=== PATIENT | male | born 1975 ===

== ENCOUNTER 2019-08-27 08:00 | Emergency (ER) | payer SELFPAY ==
[2019-08-27 08:04] VITALS: BP 153/110; PULSE 63; RESP 20; TEMP 36.6; O2SAT 100; BMI 26.2
--- NOTE | 2019-08-27 08:11 | ED_ITS ---
Entered by Rafaela Cabrera, acting as scribe for Zhang Schwartz DO HPI - Back Pain/Injury General: Chief Complaint: Back Pain/Injury Stated Complaint: neck/shoulder/back pain Time Seen by Provider: 08/27/19 08:14 History of Present Illness: HPI Narrative: 44 yo male presents with back, neck and shoulder pain. Pt states that he has a kink in his neck that he feels like is caused back his upper back pain. 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 No previous history of back surgery. No falls or recent accidents. MD elicited complaint: back pain Onset (ago): day(s) (2) Severity: moderate Associated symptoms: Deny abdominal pain, chills, difficulty walking, dysuria, fatigue, fever(s), hematuria, nausea, syncope, urinary urgency or vomiting Review of Systems Const: Denies: fever, chills, body aches, fatigue, malaise or night sweats Eyes: Denies: change in vision or blurry vision ENMT: Denies: throat pain, oral sores/lesions, dental pain, nasal discharge or nasal congestion Card: Denies: chest pain, palpitations, irregular heart rhythm, edema, syncope, shortness of breath on exertion, shortness of breath when lying down or leg pain with exertion Resp: Denies: shortness of breath, productive cough, non-productive cough or wheezing GI: Denies: abdominal pain, nausea, vomiting, vomiting blood, coffee grounds in vomit, difficulty swallowing, heartburn/indigestion, diarrhea, constipation, cramping, blood in stool or black tarry stool : Denies: flank pain, difficulty urinating, painful urination, urinary frequency, urinary urgency, urinary incontinence or blood in urine Musc: Reports: neck pain and extremity pain; Denies: extremity swelling, joint pain or joint swelling Skin/Breast: Denies: rash, itching or redness Neuro: Denies: headache, numbness in extremities, weakness in extremities, changes in sensation, lack of coordination, difficulty walking, frequent falls, dizziness, vertigo or confusion Psych: Denies: anxiety, depression, loss of interest, visual hallucinations, auditory hallucinations, suicidal ideation or homicidal ideation Endo: Denies: excessive urination, excessive thirst, tired all the time or cold intolerance Noel/Lymph: Denies: easy bruising, easy bleeding, petechiae, enlarged lymph nodes or tender lymph nodes PFSH ED PFSH: Statuses (acute, chronic, etc) shown below reflect problem list status as previously entered and may not be historically accurate Surgical History History of lung surgery (Acute) Social History Smoking and tobacco status: former smoker Physical Exam Const: COMMON NORMALS: average body habitus, oriented x3 and alert GENERAL APPEARANCE: cooperative, comfortable, well kempt and well developed NUTRITIONAL APPEARANCE: not obese ORIENTATION/CONSCIOUSNESS: Yes awake, Yes oriented to person and Yes oriented to place HENMT: COMMON NORMALS: normocephalic, head/scalp atraumatic, EAC's normal, TM's normal bilaterally, external nose normal, moist oral mucous membranes and oropharynx normal HEAD & SCALP: normocephalic and atraumatic NOSE: external nose normal EXTERNAL AUDITORY CANAL: EAC's normal TYMPANIC MEMBRANE: TM's normal bilaterally MOUTH: oral and palatal mucosa normal, lip normal and tongue normal THROAT: posterior oropharynx normal and tonsils normal Eye: COMMON NORMALS: PERRL, EOMs intact bilaterally, conjunctivae normal and no scleral icterus CONJUNCTIVA: Yes conjunctivae normal PUPIL: Yes PERRL Neck/C-Spine: COMMON NORMALS: full ROM, no lymphadenopathy, supple, no meningeal signs and thyroid normal THYROID: thyroid normal and asymmetrical Lymph: LYMPHATIC: no lymphadenopathy noted Resp: COMMON NORMALS: normal respiratory effort, no retractions, no use of accessory muscles and clear to auscultation bilaterally AUSCULTATION: clear to auscultation bilaterally Cardio: COMMON NORMALS: regular rate and regular rhythm RATE: regular rate RHYTHM: regular rhythm HEART SOUNDS: no murmurs GI: COMMON NORMALS: normal to inspection, nondistended, normoactive bowel sounds, soft to palpation and no hepatosplenomegaly PALPATION: Yes soft and Yes no hepatosplenomegaly : COMMON NORMALS: Yes no CVA tenderness BLADDER/KIDNEY EXAM: Yes no CVA tenderness Back/Pelvis: COMMON NORMALS: no CVA tenderness LUMBAR SPINE/LOWER BACK: Yes normal to inspection Extremity: COMMON NORMALS: no clubbing, cyanosis or edema, no calf tenderness and no pedal edema Neuro: COMMON NORMALS: oriented x3 SENSORIUM/ORIENTATION: Yes alert, Yes oriented to person and Yes oriented to place MENINGEAL SIGNS: Yes no meningeal signs Psych: APPEARANCE: Yes well kempt Skin: COMMON NORMALS: no rashes or lesions noted and skin turgor normal GENERAL SKIN EXAM: no rashes or lesions noted and turgor normal Course Vital Signs: Vital signs: Vital Signs Temperature 97.8 F 08/27/19 08:04 Pulse Rate 63 08/27/19 08:04 Respiratory Rate 20 H 08/27/19 08:04 Blood Pressure 153/110 08/27/19 08:04 Pulse Oximetry 100 08/27/19 08:04 Discharge Plan Discharge Patient Disposition: Home, Self-Care Clinical Impression: Strain of lumbar region Qualifiers: Encounter type: initial encounter Qualified Code(s): S39.012A - Strain of muscle, fascia and tendon of lower back, initial encounter Cervical muscle strain Qualifiers: Encounter type: initial encounter Qualified Code(s): S16.1XXA - Strain of muscle, fascia and tendon at neck level, initial encounter Condition: Stable Prescriptions: New cyclobenzaprine 5 mg tablet 10 mg PO Q8H Qty: 30 RF: 0 diclofenac sodium 75 mg tablet,delayed release (DR/EC) 75 mg PO Q12H PRN (Reason: pain) Qty: 30 RF: 0 Discharge Orders: Discharge Order (Routine); Ordered 08/27/19 Ordered By: Zhang Schwartz Discharge Diet: Usual diet Discharge Activity: Increase activity as tolerated Activity Restrictions/Additional Instructions: Case management will call to get set up with a primary care doctor. Discharge Date/Time: 08/27/19 08:42 Coding Level of Care Code ED Regulatory Attorney for Chg Fwd Exam Problem Focused The documentation recorded by the Rick burgos Kialy, accurately reflects the service I personally performed and the decisions made by , Zhang Schwartz, Aug 27, 2019 08:00
[2019-08-27] MEDS: ketorolac 60 mg/2 mL INJ IM (08:23)
[2019-08-27] MEDS: orphenadrine 30 mg/mL Inj 2 mL 60 MG IM (08:24)
--- NOTE | 2019-08-27 08:35 | PC.NURSE ---
Left arm: Limited ROM due to pain. Mid-back: No deformity noted. [place] with ROM. Left neck: Pain with ROM
--- NOTE | 2019-08-27 14:40 | DCPLANNER ---
manager recovery had message to speak with patient about getting established with a primary care physician. manager recovery called patient, unable to speak with patient at this time, did speak with patients spouse, left a message for patient to return showcase trimmer phone call.
== END 2019-08-27 08:42 | disposition home or self-care (01) ==
PROVIDERS: Emergency Provider Family Medicine
DX: S39.012A Strain of muscle, fascia and tendon of lower back, initial encounter (principal); S16.1XXA Strain of muscle, fascia and tendon at neck level, initial encounter; X50.0XXA Overexertion from strenuous movement or load, initial encounter; Z87.891 Personal history of nicotine dependence
CPT/HCPCS: 96372; 99281; J1885; J2360

== ENCOUNTER 2020-04-17 06:32 | Emergency (ER) | payer SELFPAY ==
[2020-04-17 06:42] VITALS: BP 120/77; PULSE 69; RESP 16; TEMP 36.9; O2SAT 98; BMI 25.0
[2020-04-17 07:07] VITALS: PULSE 67; RESP 18; O2SAT 97
--- NOTE | 2020-04-17 07:20 | XR_ITS ---
WS: [id number] Right foot, 3 views, 04/16/2020 Clinical Data: foot pain Comparison: Right foot, 06/18/2012. Findings: No fractures or dislocations are seen. No bone destruction or erosion is noted. The joint spaces and soft tissues are normal. XR/XR foot RT min 3V* [id number] Impression: Negative right foot.
--- NOTE | 2020-04-17 07:21 | CT_ITS ---
WS: [id number] CT LUMBAR SPINE TECHNIQUE: Noncontrast CT of the lumbar spine with coronal and sagittal reformatted images. CLINICAL INFORMATION: radicular leg pain COMPARISON: None. DLP: 1855.[address] scans at [facility] use at least one of these dose optimization techniques: automat ed exposure control; mA and/or kV adjustment per patient size (includes targeted exams where dose is matched to clinical indication); or iterative reconstruction. FINDINGS: Mild lumbar curve. No acute compression. No high-grade central canal stenosis. L1-L2: Normal. L2-L3: Normal. L3-L4: Mild annular bulging. Osteophytic ridging. Spinal canal and foramen are patent. Mild facet art hropathy. L4-L5: Mild annular bulging with narrowing of the subarticular recess bilaterally left greater than r ight. Mild left foraminal narrowing with slight contact of the exiting left L4 nerve root. Right fora men is patent. Mild facet arthropathy with ligamentum flavum hypertrophy. L5-S1: Central and right pericentral disc protrusion contacts the traversing right S1 nerve root. Rec ommend correlation for right S1 nerve root symptoms. Mild right foraminal narrowing. Mild facet arthr opathy. Visualized pelvic bony structures: Normal. Paravertebral soft tissues: Normal. CT/CT lumbar spine wo con* [id number] IMPRESSION: 1. Small right pericentral protrusion L5-S1 slightly impinges the traversing r ight S1 nerve root. Recommend correlation for right S1 nerve root symptoms. 2. Mild right L5-S1 foraminal narrowing. 3. Annular bulging L4-5 with narrowing of the left greater than right subartic ular recess. Mild left L4-5 foraminal narrowing. Notified Zhang Schwartz DO at 04/17/2020 8:16 AM.
--- NOTE | 2020-04-17 07:22 | W.ED.EXTPRO ---
HPI - Extremity Problem General: Chief complaint: Extremity Problem,Nontraumatic Stated complaint: R FOOT INJURY Time Seen by Provider: 04/17/20 06:38 History of Present Illness: HPI Narrative: 45-year-old male presents emergency room with complaint of lateral right foot pain over the fourth and fifth toes. He cannot recall any particular trauma or injuries not previously had pain in his foot like that before he does note that when he dries his knee and flexes at the hip it seems to be a little bit better he is not previously had any chronic back pain issues or surgery. He denies urinary retention denies fecal incontinence. MD Complaint: extremity pain Onset (ago): day(s) Pain Consistency: constant Location: right and toe (Fourth and fifth) Quality: burning and sharp Radiation: distal Relieving factors: other (Flexing at the hip) Exacerbating factors: weight bearing and walking Associated symptoms: Reports arthralgias; Deny chest pain, fever(s), myalgias, rash or short of breath Review of Systems Const: Denies: fever(s) ENMT: Denies: throat pain, ear or mastoid pain, nasal discharge or nasal congestion Card: Denies: chest pain Resp: Denies: dyspnea, productive cough or non-productive cough GI: Denies: abdominal pain, nausea, vomiting, hematemesis, coffee ground emesis, diarrhea, constipation, bloating, hematochezia or melena : Denies: flank pain, dysuria, urinary frequency or urinary urgency Skin/Breast: Denies: rash PFSH ED PFSH: Medical History (Updated 04/17/20 @ 08:55 by Zhang Schwartz DO) Multiple rib fractures No significant past medical history Surgical History History of lung surgery Social History (Updated 04/17/20 @ 07:25 by Zhang Schwartz DO) Smoking and tobacco status: former smoker Alcohol intake: former Physical Exam Const: COMMON NORMALS: no acute distress GENERAL APPEARANCE: cooperative and comfortable ORIENTATION/CONSCIOUSNESS: Yes awake, Yes oriented to person, Yes oriented to place and Yes oriented to time HENMT: COMMON NORMALS: normocephalic, atraumatic and hearing grossly normal bilaterally HEAD & SCALP: normocephalic and atraumatic Eye: COMMON NORMALS: Equal, round and reactive pupils present, EOMs intact bilaterally, conjunctivae normal and no scleral icterus CONJUNCTIVA: Yes conjunctivae normal PUPIL: Yes Equal, round and reactive pupils present Neck/C-Spine: COMMON NORMALS: full ROM, no lymphadenopathy, supple and no JVD Lymph: LYMPHATIC: no lymphadenopathy noted and no lymphedema noted Resp: COMMON NORMALS: normal respiratory effort, No retractions, No use of accessory muscles and clear to auscultation bilaterally AUSCULTATION: clear to auscultation bilaterally Cardio: COMMON NORMALS: no JVD, regular rate, regular rhythm and No murmurs present (Cardio) RATE: regular rate RHYTHM: regular rhythm GI: COMMON NORMALS: Soft to palpation and No hepatosplenomegaly present AUSCULTATION: Yes normoactive bowel sounds PALPATION: Yes Soft to palpation, No Tenderness to palpation present (GI), No Guarding due to palpation present (GI) and Yes No hepatosplenomegaly present Extremity: COMMON NORMALS: normal to inspection, capillary refill normal, no clubbing, cyanosis or edema, no calf tenderness and no pedal edema Neuro: SENSORIUM/ORIENTATION: Yes oriented to person, Yes oriented to place and Yes oriented to time OTHER: Straight leg raising negative bilaterally dorsi and plantarflex strength 5 of 5 diminished reflexes at the patellar tendon bilaterally hypersensitivity over the lateral aspect of the right foot. Skin: COMMON NORMALS: no rashes or lesions noted GENERAL SKIN EXAM: no rashes or lesions noted Course Vital Signs: Vital signs: Vital Signs Temperature 98.4 F 04/17/20 06:42 Pulse Rate 57 L 04/17/20 09:00 Respiratory Rate 18 04/17/20 09:00 Blood Pressure 116/78 04/17/20 09:00 Pulse Oximetry 100 04/17/20 09:00 MDM - Extremity (Nontraumatic) MDM Narrative: Medical decision making narrative: Slights sensation discrepancy of motor function 5/5 will get discharged home with anti-inflammatories muscle relaxers and Medrol Dosepak follow-up with primary care provider chaparror within the next week to reevaluate return if has worsening problems Discharge Plan Discharge Patient Disposition: Home Clinical Impression: Right lumbar radiculopathy Condition: Stable Prescriptions: New hydrocodone-acetaminophen 5-325 mg tablet 1 tab PO Q6H PRN (Reason: pain) Qty: 20 RF: 0 Medrol (Red) 4 mg tablets,dose pack See Rx Instructions .ROUTE .COMPLEX Qty: 21 RF: 0 tizanidine 4 mg capsule 4 mg PO Q6H PRN (Reason: muscle spasticity) Qty: 20 RF: 0 No Action cyclobenzaprine 5 mg tablet 10 mg PO Q8H Qty: 30 RF: 0 diclofenac sodium 75 mg tablet,delayed release (DR/EC) 75 mg PO Q12H PRN (Reason: pain) Qty: 30 RF: 0 Discharge Orders: Discharge Order (Routine); Ordered 04/17/20 Ordered By: Zhang Schwartz Discharge Diet: Usual diet Discharge Activity: Increase activity as tolerated Discharge Date/Time: 04/17/20 09:00 Coding Level of Care Code ED Foundation Digger for Anand Fwd Exam Comprehensive
[2020-04-17] MEDS: ketorolac 60 mg/2 mL INJ IM (07:59)
[2020-04-17 09:00] VITALS: BP 116/78; PULSE 57; RESP 18; O2SAT 100
== END 2020-04-17 09:00 | disposition home or self-care (01) ==
PROVIDERS: Emergency Provider Family Medicine
DX: M54.16 Radiculopathy, lumbar region (principal); Z87.891 Personal history of nicotine dependence
CPT/HCPCS: 12345; 72131; 73630; 96372; 99281; 99283; J1885

== ENCOUNTER 2020-06-01 12:15 | Emergency (ER) | payer SELFPAY ==
--- NOTE | 2020-06-01 12:17 | XRR_ITS ---
PROCEDURE INFORMATION: Exam: XR Right Hand Exam date and time: 06/01/2020 12:18 PM Age: 45 years old Clinical indication: Injury or trauma; Other: Nail to hand; Puncture; Right; Injury date: Today TECHNIQUE: Imaging protocol: XR Right hand. Views: 3 or more views. COMPARISON: No relevant prior studies available. FINDINGS: Bones/joints: Normal. Soft tissues: Normal. No foreign bodies are seen. XR/XR hand RT min 3V* [id number] IMPRESSION: No acute findings.
[2020-06-01 12:23] VITALS: BP 114/61; PULSE 66; RESP 18; TEMP 36.5; O2SAT 98; BMI 24.3
--- NOTE | 2020-06-01 12:33 | ED_ITS ---
HPI - Wound/Laceration General: Chief Complaint: Wound/Laceration Stated Complaint: drove nail through r hand Time Seen by Provider: 06/01/20 12:17 Source: patient Mode of arrival: ambulatory Limitations: no limitations History of Present Illness: HPI narrative: 45-year-old male states he fell today while working and landed on an exposed nail out of wood floor. Patient has a puncture wound to the palmar aspect of his right hand. He states the nail did not go all the way through. He is not up-to-date on his tetanus. He does have pain he rates a 6 out of 10. Denies any other injuries. Associated symptoms: Denies chills, fever(s), nausea or vomiting Review of Systems Const: Denies: fever(s), chills, body aches or change in appetite Eyes: Denies: blurry vision or eye discomfort ENMT: Denies: throat pain or dental pain Card: Denies: chest pain Resp: Denies: dyspnea GI: Denies: abdominal pain, nausea, vomiting or diarrhea : Denies: dysuria Musc: Denies: neck pain or back pain Skin/Breast: Denies: rash Neuro: Denies: headache(s) Psych: Denies: depression Noel/Lymph: Denies: easy bruising All/Imm: Denies: urticaria PFSH ED PFSH: Medical History Multiple rib fractures No significant past medical history Surgical History History of lung surgery Social History Smoking and tobacco status: former smoker Alcohol intake: former Physical Exam Const: COMMON NORMALS: no acute distress, patient oriented x3 and healthy appearing HENMT: COMMON NORMALS: normocephalic and atraumatic HEAD & SCALP: normocephalic and atraumatic Eye: COMMON NORMALS: Equal, round and reactive pupils present and EOMs intact bilaterally PUPIL: Yes Equal, round and reactive pupils present Neck/C-Spine: COMMON NORMALS: full ROM and supple Chest: COMMONS NORMALS: normal inspection of the chest and normal palpation of entire chest wall Resp: COMMON NORMALS: normal respiratory effort, No retractions, No use of accessory muscles and clear to auscultation bilaterally AUSCULTATION: clear to auscultation bilaterally Cardio: COMMON NORMALS: regular rate, regular rhythm and No murmurs present (Cardio) RATE: regular rate RHYTHM: regular rhythm GI: COMMON NORMALS: Normal to inspection, nondistended, normoactive bowel sounds present, Soft to palpation, non-tender and no masses PALPATION: Yes Soft to palpation Extremity: COMMON NORMALS: normal to inspection and full ROM NARRATIVE EXTREMITY EXAM: Puncture wound to middle of right palm patient's distal sensation is intact. No obvious deformities. Wound is clean Neuro: COMMON NORMALS: patient oriented x3, moves all extremities and no focal motor deficits Psych: COMMON NORMALS: mental status grossly normal, Normal thought process present and cooperative THOUGHT PROCESS: Normal thought process present Skin: COMMON NORMALS: no rashes or lesions noted and no wounds GENERAL SKIN EXAM: no rashes or lesions noted Course Vital Signs: Vital signs: Vital Signs Temperature 97.7 F 06/01/20 12:23 Pulse Rate 66 06/01/20 12:23 Respiratory Rate 18 06/01/20 12:23 Blood Pressure 114/61 06/01/20 12:23 Pulse Oximetry 98 06/01/20 12:23 MDM - Wound/Laceration MDM Narrative: Medical decision making narrative: Patient presents here with a puncture wound to his right hand. Patient has no signs of retained foreign body or major injury. Will place patient on prophylactic antibiotics and pain meds. Patient is to watch for any signs of infection return immediately. He understands and agrees to the plan. Imaging Data^: xr r hand: My impression: no acute abnormality Discharge Plan Discharge Patient Disposition: Home Clinical Impression: Puncture wound Condition: Stable Prescriptions: New Naprosyn 500 mg tablet 500 mg PO BID PRN (Reason: pain) Qty: 20 RF: 0 Augmentin 875-125 mg tablet 1 tab PO BID Qty: 10 RF: 0 No Action cyclobenzaprine 5 mg tablet 10 mg PO Q8H Qty: 30 RF: 0 diclofenac sodium 75 mg tablet,delayed release (DR/EC) 75 mg PO Q12H PRN (Reason: pain) Qty: 30 RF: 0 hydrocodone-acetaminophen 5-325 mg tablet 1 tab PO Q6H PRN (Reason: pain) Qty: 20 RF: 0 Medrol (Red) 4 mg tablets,dose pack See Rx Instructions .ROUTE .COMPLEX Qty: 21 RF: 0 tizanidine 4 mg capsule 4 mg PO Q6H PRN (Reason: muscle spasticity) Qty: 20 RF: 0 Discharge Orders: Discharge Order (Routine); Ordered 06/01/20 Ordered By: Екатерина Guzman Discharge Diet: Advance as tolerated Discharge Activity: Resume usual activity Patient Instructions: Puncture Wound (ED) Coding Level of Care Code ED Pocketed Spring Assembler for Anand Fwaaron Exam Comprehensive
[2020-06-01] MEDS: HYDROcodone-acetaminophen 5-325 mg Tablet 1 TAB PO (12:43)
[2020-06-01] MEDS: tetanus-dipt-pertussis 0.5 mL SDV IM (12:44)
== END 2020-06-01 13:05 | disposition home or self-care (01) ==
PROVIDERS: Emergency Provider Emergency Medicine
DX: S61.431A Puncture wound without foreign body of right hand, initial encounter (principal); W45.0XXA Nail entering through skin, initial encounter; Z87.891 Personal history of nicotine dependence; Z23 Encounter for immunization
CPT/HCPCS: 12345; 73130; 90471; 90715; 99281; 99283

== ENCOUNTER 2020-08-19 17:39 | Emergency (ER) | payer SELFPAY ==
[2020-08-19 17:43] VITALS: BP 137/75; PULSE 99; RESP 18; TEMP 36.9; O2SAT 95; BMI 24.3
--- NOTE | 2020-08-19 18:15 | W.ED.COVID ---
HPI - COVID General: Chief Complaint: COVID symptoms Stated Complaint: Body Aches/Back Pain/Head Pressure Time Seen by Provider: 08/19/20 17:58 Triage information: Has fever, cough or shortness of breath. No known COVID + exposure last 14 days History of Present Illness: HPI Narrative: Muscle aches eye aches chills cough history of chronic back pains, had 3 back surgeries and is looking for referral to a pain clinic orthopedic back surgeon MD complaint: has COVID symptoms Prior covid testing: no COVID 19 common symptoms: positive fever(s), chills, cough, fatigue, body aches, headache(s), loss of sense of smell and/or taste and nasal congestion; negative non-productive cough, productive cough, dyspnea, nausea or vomiting COVID 19 other sytmptoms: negative chest pain Onset (ago): day(s) Severity: mild Treatment prior to arrival: none COVID Results: No Data to Display Review of Systems Const: Reports: fever(s), chills, body aches and fatigue Eyes: Denies: change in vision or blurry vision ENMT: Reports: nasal congestion Card: Denies: chest pain or dyspnea on exertion Resp: Denies: dyspnea, productive cough or non-productive cough GI: Denies: abdominal pain, nausea or vomiting : Denies: difficulty urinating Musc: Reports: back pain; Denies: extremity pain Skin/Breast: Denies: rash Neuro: Reports: headache(s) Psych: Denies: anxiety or depression Noel/Lymph: Denies: easy bruising PFS ED PFSH: Medical History (Updated 08/19/20 @ 18:02 by JUDY [place]) Multiple rib fractures No significant past medical history Surgical History History of lung surgery Social History Smoking and tobacco status: former smoker Alcohol intake: former Physical Exam Const: COMMON NORMALS: no acute distress, average body habitus and patient oriented x3 HENMT: COMMON NORMALS: normocephalic HEAD & SCALP: normal to inspection and normocephalic FACE & SINUS: normal facial exam Eye: COMMON NORMALS: conjunctivae normal GENERAL EYE: appearance normal, both eyes and all related structures CONJUNCTIVA: Yes conjunctivae normal Neck/C-Spine: COMMON NORMALS: no JVD Chest: COMMONS NORMALS: normal inspection of the chest Resp: COMMON NORMALS: normal respiratory effort and clear to auscultation bilaterally AUSCULTATION: clear to auscultation bilaterally Cardio: COMMON NORMALS: no JVD, regular rate and regular rhythm RATE: regular rate RHYTHM: regular rhythm GI: COMMON NORMALS: Normal to inspection, nondistended, normoactive bowel sounds present Back/Pelvis: THORACIC SPINE/UPPER BACK: Yes paraspinal muscle tenderness Thoracic paraspinal muscle tenderness: left Extremity: COMMON NORMALS: normal to inspection and full ROM Neuro: COMMON NORMALS: patient oriented x3 Course Vital Signs: Vital signs: Vital Signs Temperature 98.4 F 08/19/20 17:43 Pulse Rate 99 08/19/20 17:43 Respiratory Rate 18 08/19/20 17:43 Blood Pressure 137/75 08/19/20 17:43 Pulse Oximetry 95 08/19/20 17:43 MDM - COVID COVID Results: No Data to Display Discharge Plan Discharge Patient Disposition: Home Clinical Impression: Suspected severe acute respiratory syndrome coronavirus 2 (SARS-CoV-2) infection Chronic back pain Qualifiers: Back pain location: thoracic back pain Back pain laterality: left Qualified Code(s): M54.6 - Pain in thoracic spine Condition: Stable Prescriptions: New dexamethasone 6 mg tablet 6 mg PO DAILY Qty: 7 RF: 0 tramadol 50 mg tablet 50 mg PO TID PRN (Reason: pain) Qty: 7 RF: 0 No Action cyclobenzaprine 5 mg tablet 10 mg PO Q8H Qty: 30 RF: 0 diclofenac sodium 75 mg tablet,delayed release (DR/EC) 75 mg PO Q12H PRN (Reason: pain) Qty: 30 RF: 0 hydrocodone-acetaminophen 5-325 mg tablet 1 tab PO Q6H PRN (Reason: pain) Qty: 20 RF: 0 Medrol (Red) 4 mg tablets,dose pack See Rx Instructions .ROUTE .COMPLEX Qty: 21 RF: 0 tizanidine 4 mg capsule 4 mg PO Q6H PRN (Reason: muscle spasticity) Qty: 20 RF: 0 Naprosyn 500 mg tablet 500 mg PO BID PRN (Reason: pain) Qty: 20 RF: 0 Augmentin 875-125 mg tablet 1 tab PO BID Qty: 10 RF: 0 Discharge Orders: Discharge ED (Routine); Ordered 08/19/20 Ordered By: Son Vargas Discharge Diet: Usual diet Discharge Activity: Return to work/school after cleared by PCP/Specialist Patient Instructions: Viral Syndrome (ED), Chronic Back Pain (ED) Activity Restrictions/Additional Instructions: Follow-up with medical provider as directed. Take medications as prescribed. Return to the ER or your medical provider if condition worsens. Please read and understand discharge instructions. If any questions ask please. Self quarantine for 10 days establish with the family practice clinic of [facility] and see about getting referral to orthopedic back doctor for chronic back pain Coding Level of Care Code ED Firer Portable Boiler for Anand Nixon
[2020-08-19] MEDS: dexamethasone 4 mg Tablet 10 MG PO (18:17)
[2020-08-19] MEDS: HYDROcodone-acetaminophen 5-325 mg Tablet 1 TAB PO (18:17)
[2020-08-20 15:36] LABS: Coronavirus Test Green County Not Detected
== END 2020-08-19 18:33 | disposition home or self-care (01) ==
PROVIDERS: Emergency Provider Nurse Practitioner Family
DX: Z20.828 Contact with and (suspected) exposure to other viral communicable diseases (principal); G89.29 Other chronic pain; M54.6 Pain in thoracic spine; Z87.891 Personal history of nicotine dependence
CPT/HCPCS: 12345; 87635; 99281; 99283; J8540

== ENCOUNTER 2020-08-28 07:26 | Emergency (ER) | payer SELFPAY ==
[2020-08-28 07:34] VITALS: BP 122/71; PULSE 84; RESP 18; TEMP 37.3; O2SAT 99; BMI 25.8
--- NOTE | 2020-08-28 07:36 | XR_ITS ---
WS: [id number] Left foot, 3 views, 08/28/2020 Clinical Data: injury Comparison: None. Findings: No fractures or dislocations are seen. No bone destruction or erosion is noted. The joint spaces and soft tissues are normal. XR/XR foot LT min 3V* [id number] Impression: Negative left foot.
--- NOTE | 2020-08-28 07:36 | XR_ITS ---
WS: [id number] Left ankle, 3 views, 08/28/2020 Clinical Data: injury Comparison: None. Findings: No fractures or dislocations are seen. The ankle mortise is normal. The talus and calcaneus are unrem arkable. No soft tissue swelling over the medial or lateral malleolus is seen. There is a small Achilles spur. XR/XR ankle LT min 3V* [id number] Impression: Negative left ankle.
--- NOTE | 2020-08-28 07:39 | W.ED.FALL ---
HPI - Fall General: Chief Complaint: Fall Stated Complaint: FALL,L ANKLE AND BACK PAIN Time Seen by Provider: 08/28/20 07:34 Source: patient, RN notes reviewed and old records reviewed Mode of arrival: wheelchair Limitations: no limitations History of Present Illness: HPI Narrative: This patient is a 45-year-old male who states that stumbled and twisted his ankle yesterday while working on a trailer behind his truck. Patient states unable to bear weight and ambulate on left ankle and foot. States he has had swelling and bruising laterally. Patient also states he does have chronic back pain for which he sees his primary care physician for. Patient takes Flexeril and nonsteroidal pain medication for his back. Patient states he has not taken any of his medications this morning due to new that he was coming to the emergency department. complaint: other Onset (ago): day(s) (1) Fall from: standing Fall witnessed: no Place fall occurred: home Loss of consciousness: None Prolonged down time: no Context: tripped/slipped Location of injury - extremities: Left: ankle and foot Severity: moderate Severity scale (1-10): 5 Quality: aching Associated symptoms-after fall: Reports difficulty walking; Denies abdominal pain, chest pain, headache(s) or neck pain Review of Systems Const: Denies: fever(s), chills, body aches, change in appetite or fatigue Eyes: Denies: change in vision or blurry vision ENMT: Denies: throat pain or hoarseness Card: Denies: chest pain, palpitations or irregular heart rhythm Resp: Denies: dyspnea, productive cough or non-productive cough GI: Denies: abdominal pain, nausea or vomiting Musc: Reports: back pain, extremity pain, extremity swelling, joint pain, joint swelling and limited range of motion; Denies: neck pain, joint redness, joint warmth, muscle weakness or decrease in muscle mass Skin/Breast: Denies: rash, erythema or skin tenderness Neuro: Reports: difficulty walking; Denies: headache(s) or numbness in extremities Psych: Denies: anxiety or depression Endo: Denies: polyuria or polydipsia Noel/Lymph: Denies: easy bruising or easy bleeding PFS ED PFSH: Medical History (Updated 08/28/20 @ 08:03 by Gelacio Suggs MD) Multiple rib fractures No significant past medical history Surgical History History of lung surgery Social History Smoking and tobacco status: former smoker Alcohol intake: former Physical Exam Const: COMMON NORMALS: no acute distress, average body habitus, no limitations and healthy appearing HENMT: COMMON NORMALS: normocephalic, atraumatic, hearing grossly normal bilaterally, EAC's normal, TM's normal bilaterally, Normal external nose present and Normal nasal mucous membranes and turbinates present HEAD & SCALP: normocephalic and atraumatic NOSE: Normal external nose present and Normal nasal mucous membranes and turbinates present EXTERNAL AUDITORY CANAL: EAC's normal TYMPANIC MEMBRANE: TM's normal bilaterally Eye: COMMON NORMALS: Equal, round and reactive pupils present and EOMs intact bilaterally PUPIL: Yes Equal, round and reactive pupils present Neck/C-Spine: COMMON NORMALS: full ROM, no lymphadenopathy and no JVD Lymph: LYMPHATIC: no lymphadenopathy noted Chest: COMMONS NORMALS: normal inspection of the chest and normal palpation of entire chest wall Resp: COMMON NORMALS: normal respiratory effort, No retractions, No use of accessory muscles, clear to auscultation bilaterally and percussion normal AUSCULTATION: clear to auscultation bilaterally PERCUSSION: percussion normal Cardio: COMMON NORMALS: no JVD, regular rate and regular rhythm RATE: regular rate RHYTHM: regular rhythm GI: COMMON NORMALS: Normal to inspection, nondistended, normoactive bowel sounds present, Soft to palpation and non-tender PALPATION: Yes Soft to palpation : COMMON NORMALS: Yes no CVA tenderness BLADDER/KIDNEY EXAM: Yes no CVA tenderness Back/Pelvis: COMMON NORMALS: no CVA tenderness and thoracic and lumbar spine normal to inspection Extremity: COMMON NORMALS: negative for full ROM and negative for no pedal edema NARRATIVE EXTREMITY EXAM: Patient appears to have some bruising to the lateral foot on the left and ankle swelling laterally in the left ankle. Patient states difficult to bear weight due to pain in left ankle. LEFT LOWER EXTREMITY: Yes ankle joint (Swelling noted with decreased range of motion.) Left ankle: Yes inspection and Yes ROM Course ED course: X-rays negative for fracture. Patient was placed in a walking boot. Rest ice elevation. Walking boot as instructed. May continue with all home medications as prescribed per primary care physician. If any medications adjustments needed must be seen by primary care. Patient be discharged home. Patient and spouse state understanding of instructions. Vital Signs: Vital signs: Vital Signs Temperature 99.1 F 08/28/20 07:34 Pulse Rate 88 08/28/20 07:44 Respiratory Rate 16 08/28/20 07:44 Blood Pressure 122/71 08/28/20 07:44 Pulse Oximetry 98 08/28/20 07:44 MDM - Fall Differential Diagnosis: Fall Differential Diagnosis: Unlikely syncope, dislocation of shoulder region, fracture of wrist, compression fracture, concussion with loss of consciousness and concussion without loss of consciousness Imaging Data^: Xray Ortho: My impression: Negative for acute fracture. Discharge Plan Discharge Patient Disposition: Home Clinical Impression: Moderate left ankle sprain Condition: Stable Prescriptions: No Action cyclobenzaprine 5 mg tablet 10 mg PO Q8H Qty: 30 RF: 0 diclofenac sodium 75 mg tablet,delayed release (DR/EC) 75 mg PO Q12H PRN (Reason: pain) Qty: 30 RF: 0 hydrocodone-acetaminophen 5-325 mg tablet 1 tab PO Q6H PRN (Reason: pain) Qty: 20 RF: 0 Medrol (Red) 4 mg tablets,dose pack See Rx Instructions .ROUTE .COMPLEX Qty: 21 RF: 0 tizanidine 4 mg capsule 4 mg PO Q6H PRN (Reason: muscle spasticity) Qty: 20 RF: 0 Naprosyn 500 mg tablet 500 mg PO BID PRN (Reason: pain) Qty: 20 RF: 0 Augmentin 875-125 mg tablet 1 tab PO BID Qty: 10 RF: 0 dexamethasone 6 mg tablet 6 mg PO DAILY Qty: 7 RF: 0 tramadol 50 mg tablet 50 mg PO TID PRN (Reason: pain) Qty: 7 RF: 0 Discharge Orders: Discharge ED (Routine); Ordered 08/28/20 Ordered By: Gelacio Suggs Referrals: Francisco J Garcia MD [Primary Care Provider] - Discharge Diet: Usual diet Discharge Activity: Increase activity as tolerated Patient Instructions: RICE Therapy (ED) Activity Restrictions/Additional Instructions: Rest ice elevation. Walking boot as instructed. May continue with all home medications as prescribed per primary care physician. If any medications adjustments needed must be seen by primary care. Patient be discharged home. Patient and spouse state understanding of instructions. Coding Level of Care Code ED Automation And Controls Instructor for Chg Fwd Exam Comprehensive
[2020-08-28 07:44] VITALS: BP 122/71; PULSE 88; RESP 16; O2SAT 98
[2020-08-28] MEDS: HYDROcodone-acetaminophen 5-325 mg Tablet 1 TAB PO (07:55)
--- NOTE | 2020-08-28 07:55 | PC.NURSE ---
Patient was given ice to apply to left ankle.
--- NOTE | 2020-08-28 08:20 | PC.NURSE ---
Walking boot obtained by mix house operator. Walking boot applied to to left ankle.
[2020-08-28 08:25] VITALS: BP 111/75; PULSE 76; RESP 17; O2SAT 99
== END 2020-08-28 08:25 | disposition home or self-care (01) ==
PROVIDERS: Emergency Provider Emergency Medicine; PCP Family Medicine
DX: S93.402A Sprain of unspecified ligament of left ankle, initial encounter (principal); X50.1XXA Overexertion from prolonged static or awkward postures, initial encounter; Z87.891 Personal history of nicotine dependence
CPT/HCPCS: 12345; 73610; 73630; 99281; 99283

== ENCOUNTER → 2020-09-04 08:28 | Outpatient (BNVA) | payer SELFPAY | PROVIDERS: Referring Provider Family Medicine; Visit Provider Orthopaedic Surgery | DX: M54.9 Dorsalgia, unspecified (principal); M54.2 Cervicalgia; M47.812 Spondylosis without myelopathy or radiculopathy, cervical region; M47.816 Spondylosis without myelopathy or radiculopathy, lumbar region | CPT/HCPCS: 72050; 72072; 72114 ==

== ENCOUNTER 2022-03-02 09:23 | Outpatient (CLI) | payer SELFPAY ==
--- NOTE | 2022-03-02 09:50 | XR_ITS ---
WS: [id number] Exam: XR hand RT min 3V* [id number] Date/Time of Exam: 03/02/2022 9:53 AM Reason For Exam: PAIN IN R HAND/KNOT/MASS IN PALM OF HAND Comparison 06/01/2020. No fracture or dislocation. No radiopaque soft tissue foreign bodies are seen. Joint structures are w ell-maintained. XR/XR hand RT min 3V* [id number] IMPRESSION: 1. Negative right hand.
== END 2022-03-02 09:24 | disposition home or self-care (01) ==
PROVIDERS: Visit Provider Family Medicine
DX: M79.641 Pain in right hand (principal)
CPT/HCPCS: 73130

== ENCOUNTER 2022-03-18 08:25 | Day surgery (SDC) | payer SELFPAY ==
[2022-03-17 12:48] VITALS: BMI 26.6
[2022-03-18] MEDS: sodium chloride 0.9% 1,000 ML 30 ML IV (09:00)
--- NOTE | 2022-03-18 09:51 | ANES.PREANE2 ---
Pre-Anesthetic Assessment Height/Weight: Height 1.73 m Weight 79.379 kg O2 Del Method 03/18/22 09:03 Preop Diagnosis: Mass right hand Operation Date: 03/18/22 10:15 Proposed Procedures p mass excision right hand/ 97484,R22.31(Right) - Jefferson Hutchinson MD Familial anesthetic complications: None Was Beta Hany taken within 24 hours: N/A Was Clonidine taken within 24 hours: N/A Last intake: Intake Last Liquid Date 03/17/22 Last Liquid Time 19:00 Last Solid Date 03/17/22 Last Solid Time 18:00 Social No alcohol and No tobacco Exam alert, oriented x 3, clear to auscultation bilaterally and regular rate & rhythm Airway Submandibular: within normal limits Cervical ROM: within normal limits Mallampati: Class I Dentition: full History/ROS No significant complaints Pulmonary None reported CV/HEM None reported None reported Hepatic None reported GI None reported Metabolic None reported Musc/skel Mass in palm of right hand Neuropsych None reported Anesthetic Plan ASA status: 1 Anesthesia: Anesthesia Evaluation and General Other: We discussed risk and benefits of general anesthesia including PONV, sore throat (sometimes severe), corneal abrasion, positioning and peripheral nerve injuries, life threatening allergic reaction, post operative ICU admission requiring prolonged intubation, stroke, heart attack, , and rare incidences of recall. Patient consents to proceed with general anesthesia. Risk of > 500 ml blood loss (7ml/kg in children): No Medications/Allergies Home Medications Medication Instructions Recorded Confirmed Last Taken Type No Known Home Medications 03/17/22 03/17/22 Unknown History Allergies Allergy/AdvReac Type Severity Reaction Status Date / Time No Known Allergies Allergy Verified 03/17/22 12:44 FORMERLY [facility], [facility]–1983 Anesthesia Medical History Multiple rib fractures No significant past medical history Surgical History History of lung surgery Social History Smoking and tobacco status: never smoked Alcohol intake: former Data Anesthesia Cardiac Studies: No Data to Display
--- NOTE | 2022-03-18 10:01 | W.PM.OPSUD ---
Surgery/Procedure H&P Update DATE OF PROCEDURE: March 18, 2022 DATE H&P PERFORMED: 03/09/22 H&P UPDATE INFORMATION: I have reviewed H&P completed within last 30 days PREOP DIAGNOSIS: Mass right hand PLANNED PROCEDURE: Operation Date: 03/18/22 10:15 Proposed Procedures p mass excision right hand/ 22733,R22.31(Right) - Jefferson Hutchinson MD
[2022-03-18] MEDS: ceFAZolin 2,000 MG in sodium chloride 0.9% (plus) 50 ML 100 MG IV (10:52)
--- NOTE | 2022-03-18 11:33 | P.OP_ITS ---
Operative Report Date of procedure: March 18, 2022 Pre-op diagnosis: Preop Diagnosis Mass right hand Post-op diagnosis: same Post-op diagnosis: Mass right palm Procedure done: Excision mass right palm Pathology: 1 cm in diameter cystic mass full of caseous purulent material was sent to pathology Anesthesia: Nerve Block ([place] block) Estimated blood loss (mL): 2 Tourniquet time (min): 28 Condition: stable Disposition: PACU Procedure: The patient was taken to the operating room and given a Stepan block by the anesthesia service. A transverse incision approximately 2 cm long was made in line with the mid palmar crease. Dissection was then carried proximally beneath the subcutaneous tissue revealing the cystic mass. Circumferential diagnosis accomplished with tenotomy scissors elevating the mass off or from the deep fascia.. The mass was released moved en bloc and sent to pathology. The wound was irrigated with saline. The skin was closed with 3-0 Prolene vertical mattress sutures. Xeroform gauze 4 x 4's and compressive web roll was applied. The patient was taken to recovery room in stable condition.
[2022-03-18 11:37] VITALS: BP 99/75; PULSE 88; RESP 20; TEMP 36.3; O2SAT 95
[2022-03-18 11:42] VITALS: BP 98/71; PULSE 63; RESP 18; O2SAT 100
[2022-03-18 11:47] VITALS: BP 101/74; PULSE 77; RESP 17; O2SAT 100
[2022-03-18 11:55] VITALS: BP 118/90; PULSE 77; RESP 17; O2SAT 100
[2022-03-18 11:58] VITALS: RESP 14; O2SAT 99
[2022-03-18] MEDS: fentaNYL 50 mcg/mL INJ 2mL IVP (11:58)
[2022-03-18 12:06] VITALS: BP 111/93; PULSE 67; RESP 16; TEMP 36.1; O2SAT 99
[2022-03-18] MEDS: HYDROcodone-acetaminophen 5-325 mg Tablet 1 TAB PO (12:28)
--- NOTE | 2022-03-18 14:18 | ANE.PACU2 ---
Inpatient post-anesthesia follow up: Airway intact: Yes Vital signs: Temperature 97.0 F Pulse Rate 67 Respiratory Rate 16 Blood Pressure 111/93 Pulse Oximetry 99 Oxygen Delivery Me thod Room Air Oxygen Flow Rate 6 Fraction of Inspir ed Oxygen Hydration adequate: Yes Nausea and vomiting: No Pain level: 5 Mental status: Baseline
== END 2022-03-18 12:45 | disposition home or self-care (01) ==
PROVIDERS: PCP Family Medicine; Visit Provider Orthopaedic Surgery
PROC: (CPT 11422; principal; 2022-03-18 10:05)
DX: L72.0 Epidermal cyst (principal)
CPT/HCPCS: 11422; 88307; J2250; J2704; J3010; J7030

== ENCOUNTER 2022-08-18 06:14 | Day surgery (SDC) | payer SELFPAY ==
[2022-08-16 09:57] VITALS: BMI 27.3
[2022-08-18 06:28] VITALS: BP 118/79; PULSE 79; RESP 18; TEMP 36.4; O2SAT 95
[2022-08-18] MEDS: sodium chloride 0.9% 1,000 ML 30 ML IV (06:33)
--- NOTE | 2022-08-18 07:00 | ANES.PREANE2 ---
Pre-Anesthetic Assessment Height/Weight: Height 1.73 m Weight 81.647 kg Temp Pulse Resp BP Pulse Ox O2 Del Method 97.6 F 79 18 118/79 95 08/18/22 06:28 08/18/22 06:28 08/18/22 06:28 08/18/22 06:28 08/18/22 06:28 08/18/22 06:28 Preop Diagnosis: screening Operation Date: 08/18/22 08:00 Proposed Procedures p Colonoscopy 05999,Z12.11(Not Applicable) - Kai Feliciano DO Familial anesthetic complications: none Was Beta Hany taken within 24 hours: N/A Was Clonidine taken within 24 hours: N/A Last intake: Intake Last Liquid Date 08/17/22 Last Liquid Time 22:00 Last Solid Date 08/16/22 Last Solid Time 19:00 Social No alcohol and No tobacco (quit 5 years ago, chews-quit a week ago) Exam alert, oriented x 3, clear to auscultation bilaterally and regular rate & rhythm Airway Submandibular: within normal limits Cervical ROM: within normal limits Mallampati: Class II Dentition: full Pulmonary None reported CV/HEM None reported None reported Hepatic None reported GI Gastroesophageal Reflux Disease (food related) Metabolic None reported Musc/skel Lower Back Pain Neuropsych None reported Anesthetic Plan ASA status: 2 Risk of > 500 ml blood loss (7ml/kg in children): No Medications/Allergies Home Medications Medication Instructions Recorded Confirmed Last Taken Type cyclobenzaprine 10 mg tablet 10 mg PO TID PRN Muscle Spasm 06/10/22 08/18/22 Unknown History fluconazole 150 mg tablet 150 mg PO BID 2 doses #4 tabs 07/22/22 08/18/22 Unknown Rx Allergies Allergy/AdvReac Type Severity Reaction Status Date / Time No Known Allergies Allergy Verified 08/16/22 09:53 Current Medications Generic Name Dose Route Start Last Admin Trade Name Freq PRN Reason Stop Dose Admin Sodium Chloride 1,000 mls @ 30 mls/hr 08/18/22 06:30 08/18/22 06:33 Sodium Chloride 0.9% IV 08/19/22 06:29 30 mls/hr .Q24H LIZETT Administration PFSH Anesthesia Medical History Multiple rib fractures No significant past medical history Surgical History History of lung surgery Social History Smoking and tobacco status: never smoked Alcohol intake: former Data Anesthesia Cardiac Studies: No Data to Display
--- NOTE | 2022-08-18 08:19 | P.HP_ITS ---
Providers/Chief Complaint Primary Care Provider: Francisco J Garcia MD Chief Complaint: Z12.11 History of Present Illness Rich Barrios is a 47 year old male who is here for his first screening colonoscopy. His father of colon cancer at age 51. He reports that he believes he is got hemorrhoids and sometimes has bright red blood per rectum. Denies any nausea, emesis, diarrhea, constipation, abdominal pain and/or me vida. Medications/Allergies Home Medications Medication Instructions Recorded Confirmed Last Taken Type cyclobenzaprine 10 mg tablet 10 mg PO TID PRN Muscle Spasm 06/10/22 08/18/22 Unknown History fluconazole 150 mg tablet 150 mg PO BID 2 doses #4 tabs 07/22/22 08/18/22 Unknown Rx Allergies Allergy/AdvReac Type Severity Reaction Status Date / Time No Known Allergies Allergy Verified 08/16/22 09:53 PFSH Acute PFSH: Medical History (Updated 08/18/22 @ 08:20 by Kai Feliciano DO) Multiple rib fractures No significant past medical history Surgical History History of lung surgery Social History Smoking and tobacco status: never smoked Alcohol intake: former Vitals/I&O/Wt Last Vital Signs Temp 97.6 F 08/18/22 06:28 Pulse 79 08/18/22 06:28 Resp 18 08/18/22 06:28 BP 118/79 08/18/22 06:28 Pulse Ox 95 08/18/22 06:28 O2 Del Method 08/18/22 06:28 Weight last 48 hrs Weight 180 lb A&P Assessment and plan (1) Colon cancer screening: Plan Colonoscopy The risks and benefits of the procedure, including bleeding, infection, intestinal perforation requiring surgery, missed lesion were explained to the patient. The patient is understanding of the risks and wishes to proceed. Attestations Medical Necessity Statement*: Home Coding Level of Care Code Acute Christian Counselor for Chg Fwd Diagnoses Colon cancer screening Z12.11
[2022-08-18 08:39] VITALS: BP 128/82; PULSE 88; RESP 20; TEMP 36.2; O2SAT 97
--- NOTE | 2022-08-18 13:33 | ANE.PACU2 ---
Inpatient post-anesthesia follow up: Airway intact: Yes Vital signs: Temperature 97.1 F Pulse Rate 88 Respiratory Rate 20 Blood Pressure 128/82 Pulse Oximetry 97 Oxygen Delivery Me thod Room Air Oxygen Flow Rate Fraction of Inspir ed Oxygen Hydration adequate: Yes Nausea and vomiting: No Pain level: 1 Mental status: Baseline
== END 2022-08-18 09:04 | disposition home or self-care (01) ==
PROVIDERS: PCP Family Medicine; Visit Provider Surgery
PROC: 0DJD8ZZ Inspection of Lower Intestinal Tract, Via Natural or Artificial Opening Endoscopic (ICD-10-PCS; CPT 45378; principal; 2022-08-18 08:00)
DX: Z12.11 Encounter for screening for malignant neoplasm of colon (principal); D12.5 Benign neoplasm of sigmoid colon; F17.220 Nicotine dependence, chewing tobacco, uncomplicated; K21.9 Gastro-esophageal reflux disease without esophagitis
CPT/HCPCS: 45385; 88305; J2704; J7030

== ENCOUNTER 2023-01-29 06:48 | Emergency (ER) | payer SELFPAY ==
--- NOTE | 2023-01-29 | XRR_ITS ---
ADDENDUM XR/XR wrist RT w scaphoid [id number] According to the technologist performing the examination, the images performed for of the left wrist. Addendum Dictated By: Titi Schuster MD Addendum Signed By: Titi Schuster MD Signed Date/Time: 02/05/23538 Addendum Cosigned By: PROCEDURE INFORMATION: Exam: XR Right Wrist Exam date and time: 01/29/2023 7:40 AM Age: 47 years old Clinical indication: Injury or trauma; Fall; Blunt trauma (contusions or hematomas); Wrist; Right TECHNIQUE: Imaging protocol: Radiologic exam of the right wrist. Views: 3 or more views. COMPARISON: No relevant prior studies available. FINDINGS: Bones/joints: The no acute bony injury or malalignment in the right wrist. Mild degenerative change. Soft tissues: 1 mm punctate radiopaque density in the soft tissues about the thenar eminence. XR/XR wrist RT w scaphoid [id number] IMPRESSION: The no acute bony injury or malalignment in the right wrist. Dictated By: Titi Schuster MD Signed By: Titi Schuster MD Signed Date/Time: 01/29/23912 DD/ 9 MTDD XR/XR wrist LT w scaphoid [id number] IMPRESSION: The no acute bony injury or malalignment in the right wrist. ADDENDUM: 02/05/23538 According to the technologist performing the examination, the images performed for of the left wrist.
[2023-01-29 06:54] VITALS: BP 138/85; PULSE 70; RESP 18; TEMP 36.6; O2SAT 97; BMI 27.3
--- NOTE | 2023-01-29 07:17 | XRR_ITS ---
PROCEDURE INFORMATION: Exam: XR Right Wrist Exam date and time: 01/29/2023 7:40 AM Age: 47 years old Clinical indication: Injury or trauma; Fall; Blunt trauma (contusions or hematomas); Wrist; Right TECHNIQUE: Imaging protocol: Radiologic exam of the right wrist. Views: 3 or more views. COMPARISON: No relevant prior studies available. FINDINGS: Bones/joints: The no acute bony injury or malalignment in the right wrist. Mild degenerative change. Soft tissues: 1 mm punctate radiopaque density in the soft tissues about the thenar eminence.
--- NOTE | 2023-01-29 07:27 | ED_ITS ---
HPI - Extremity Problem General: Chief complaint: Extremity Injury, Upper Stated complaint: fall, lt wrist + hand injury Time Seen by Provider: 01/29/23 06:58 Source: patient Mode of arrival: ambulatory History of Present Illness: 47-year-old male he tripped over a hit [employer] pickup yesterday landed on an outstretched left arm he has moderate amount of swelling and pain in the wrist no obvious deformity neurovascularly is intact denies any other injury MD Complaint: joint pain Onset (ago): hour(s) Pain Consistency: constant Location: left and upper extremity (Rest) Quality: sharp Relieving factors: nothing Exacerbating factors: nothing Associated symptoms: Deny arthralgias, chest pain, fever(s), myalgias, rash or short of breath Review of Systems Const: Denies: fever(s), chills, fatigue or malaise Card: Denies: chest pain Resp: Denies: dyspnea GI: Denies: abdominal pain Musc: Reports: joint pain Skin/Breast: Denies: rash PFSH ED PFSH: Medical History Multiple rib fractures No significant past medical history Surgical History History of lung surgery Social History Smoking and tobacco status: never smoked Alcohol intake: former Physical Exam Const: GENERAL APPEARANCE: cooperative and comfortable ORIENTATION/CONSCIOUSNESS: Yes awake, Yes oriented to person, Yes oriented to place and Yes oriented to time HENMT: COMMON NORMALS: normocephalic, atraumatic and hearing grossly normal bilaterally HEAD & SCALP: normocephalic and atraumatic Resp: COMMON NORMALS: normal respiratory effort, No retractions, No use of accessory muscles and clear to auscultation bilaterally AUSCULTATION: clear to auscultation bilaterally Cardio: COMMON NORMALS: regular rate, regular rhythm and No murmurs present (Cardio) RATE: regular rate RHYTHM: regular rhythm Extremity: OTHER: Mild swelling to left wrist pain with range of motion. No obvious deformity no crepitus no hematoma Neuro: SENSORIUM/ORIENTATION: Yes oriented to person, Yes oriented to place and Yes oriented to time Skin: COMMON NORMALS: no rashes or lesions noted GENERAL SKIN EXAM: no rashes or lesions noted Course Vital Signs: Vital signs: Vital Signs Temperature 97.8 F 01/29/23 06:54 Pulse Rate 70 01/29/23 06:54 Respiratory Rate 18 01/29/23 06:54 Blood Pressure 138/85 01/29/23 06:54 Pulse Oximetry 97 01/29/23 06:54 Oxygen Delivery Me thod Room Air 01/29/23 06:54 MDM - Extremity (Nontraumatic) Medical Decision Making There is a little irregularity in the distal radius. X-ray was read as negative by the radiologist concerned about his persistent pain will splint and have him follow-up with Ortho for follow-up or advanced imaging as deemed appropriate can use tramadol and ice for pain Medical Records I reviewed the patient's medical records. Lab Data Radiology Impressions Wrist X-Ray 01/29/23 07:17 IMPRESSION: The no acute bony injury or malalignment in the right wrist. Discharge Plan Discharge Patient Disposition: Home Clinical Impression: Acute wrist pain Condition: Stable Prescriptions: New tramadol 50 mg tablet 25 mg PO Q6H PRN (Reason: pain) Qty: 14 0RF No Action cyclobenzaprine 10 mg tablet 10 mg PO TID PRN (Reason: Muscle Spasm) fluconazole 150 mg tablet 150 mg PO BID Qty: 4 0RF Rx Instructions: Take 2 pills now then repeat dose (2 pills) in 1 week Discharge Orders: Discharge ED (Routine); Ordered 01/29/23 Ordered By: Zhang Schwartz Referrals: Francisco J Garcia MD [Primary Care Provider] - Discharge Diet: Usual diet Discharge Activity: Limit activity as instructed Patient Instructions: Opioid Safety, Pain Management Activity Restrictions/Additional Instructions: Leave splint in place until seen by orthopedics. Case management make arrangements for follow-up appointment with orthopedics. You may use the tramadol as needed for pain. Ice as needed for comfort. Coding Level of Care Code ED Regional Clinical Research Associate for Anand Nixon
--- NOTE | 2023-01-29 10:40 | DCPLANNER ---
Addendum entered by Nadeen Dang 02/08/23 11:15: Patient had a follow up appointment scheduled with ortho - patient did attend appointment. Original Note: information support project manager had message to schedule a follow up appointment for patient with ortho. information support project manager sent patients information to the front office staff at ortho. Patients information will be printed and reviewed. Clinic will call patient with appointment information.
== END 2023-01-29 09:42 | disposition home or self-care (01) ==
PROVIDERS: Emergency Provider Family Medicine; PCP Family Medicine
DX: M25.532 Pain in left wrist (principal)
CPT/HCPCS: 73110; 99283

== ENCOUNTER → 2023-02-02 15:51 | Outpatient (BNVA) | payer SELFPAY | PROVIDERS: PCP Family Medicine; Referring Provider Family Medicine; Visit Provider Specialist | DX: S69.92XA Unspecified injury of left wrist, hand and finger(s), initial encounter (principal); W01.0XXA Fall on same level from slipping, tripping and stumbling without subsequent striking against object, initial encounter | CPT/HCPCS: 73130 ==

== ENCOUNTER 2023-07-28 14:32 | Emergency (ER) | payer SELFPAY ==
[2023-07-28 14:44] VITALS: BP 121/85; PULSE 85; RESP 16; TEMP 36.4; O2SAT 97; BMI 26.6
--- NOTE | 2023-07-28 14:58 | ED_ITS ---
HPI - Wound/Laceration General: Chief Complaint: Wound/Laceration Stated Complaint: cut finger Time Seen by Provider: 07/28/23 14:33 Source: patient Mode of arrival: ambulatory Limitations: no limitations History of Present Illness: 48-year-old male states that he cut his right middle and ring finger on a skill saw. Does have a laceration to the tip of his ring finger and very superficial laceration to middle finger. He has full range of motion rates his pain a 4 out of 10 he is up-to-date on his tetanus Associated symptoms: Denies chills or fever(s) Review of Systems Const: Denies: fever(s), chills, body aches or change in appetite ENMT: Denies: throat pain or dental pain Card: Denies: chest pain GI: Denies: abdominal pain Musc: Reports: extremity pain; Denies: neck pain or back pain Skin/Breast: Denies: rash All/Imm: Denies: urticaria PFSH ED PFSH: Medical History (Updated 07/28/23 @ 15:25 by Екатерина Guzman MD) Multiple rib fractures No significant past medical history Surgical History History of lung surgery Social History Smoking and tobacco/nicotine status: never used tobacco/nicotine Alcohol intake: former Physical Exam Const: COMMON NORMALS: no acute distress, patient oriented x3 and healthy appearing HENMT: COMMON NORMALS: normocephalic and atraumatic HEAD & SCALP: normocephalic and atraumatic Neck/C-Spine: COMMON NORMALS: full ROM and supple Chest: COMMONS NORMALS: normal inspection of the chest Resp: COMMON NORMALS: normal respiratory effort Extremity: NARRATIVE EXTREMITY EXAM: Superficial laceration to right middle finger distal pad has a 1 cm laceration to the pad of his right ring finger bleeding is controlled is full range of motion no tendon involvement Neuro: COMMON NORMALS: patient oriented x3, moves all extremities and no focal motor deficits Psych: COMMON NORMALS: mental status grossly normal, Normal thought process present and cooperative THOUGHT PROCESS: Normal thought process present Skin: COMMON NORMALS: no rashes or lesions noted and no wounds GENERAL SKIN EXAM: no rashes or lesions noted Course Vital Signs: Vital signs: Vital Signs Temperature 97.6 F 07/28/23 14:44 Pulse Rate 85 07/28/23 14:44 Respiratory Rate 16 07/28/23 14:44 Blood Pressure 121/85 07/28/23 14:44 Pulse Oximetry 97 07/28/23 14:44 MDM - Wound/Laceration Medical Decision Making Patient presents with a laceration I did repair the lacerations have sutures removed in 10 days no signs of fracture noted deep structure involvement he is up-to-date on his tetanus stable for discharge follow-up with PCP. Medical Records I reviewed the patient's medical records. XR interpretation done by ED provider, pending radiology final review ED provider radiology interpretation(s): xr hand: no acute abnormality Discharge Plan Discharge Patient Disposition: Home Clinical Impression: Laceration Condition: Stable Prescriptions: No Action No Known Home Medications Discharge Orders: Discharge ED (Routine); Ordered 07/28/23 Ordered By: Екатерина Guzman Referrals: Francisco J Garcia MD [Primary Care Provider] - Discharge Diet: Advance as tolerated Discharge Activity: Resume usual activity Patient Instructions: Laceration (ED) Activity Restrictions/Additional Instructions: suture removal in 10 days Coding Level of Care Code ED [employer] Farmer for Anand Nixon
--- NOTE | 2023-07-28 14:59 | XR_ITS ---
WS: [id number] RIGHT HAND: 3 VIEW(S) TECHNIQUE: PA, oblique and lateral. HISTORY: injury COMPARISON: None available. No acute fracture or dislocation. No soft tissue or bone abnormality. IMPRESSION: Normal RIGHT hand.
[2023-07-28] MEDS: HYDROcodone-acetaminophen 5-325 mg Tablet 1 TAB PO (15:07)
[2023-07-28] MEDS: lidocaine 1% INJ 10 mL (per mL) INJECTION (15:18)
== END 2023-07-28 15:47 | disposition home or self-care (01) ==
PROVIDERS: Emergency Provider Emergency Medicine; PCP Family Medicine
DX: S61.212A Laceration without foreign body of right middle finger without damage to nail, initial encounter (principal); S61.214A Laceration without foreign body of right ring finger without damage to nail, initial encounter; W27.0XXA Contact with workbench tool, initial encounter
CPT/HCPCS: 12001; 73130; 99283

== ENCOUNTER 2023-10-01 01:08 | Emergency (ER) | payer SELFPAY ==
[2023-10-01] VITALS (9 sets, daily range): BP systolic 98–144; BP diastolic 57–117; PULSE 55–64; RESP 10–26; TEMP 36.6; O2SAT 95–99; BMI 24.9
--- NOTE | 2023-10-01 01:13 | ED_ITS ---
HPI - Back Pain/Injury 2 General: Chief Complaint: Back Pain/Injury Stated Complaint: back pain working to front Time Seen by Provider: 10/01/23 01:13 History of Present Illness: 48-year-old male presents emerged part w ith complaints of right flank pain rating around to his right groin that started suddenly approximately 20 minutes prior to arrival here in the emergency department he states the pain is a 10 out of 10 sharp and stabbing. He states he cannot find any comfortable positions and nothing makes the pain better. He does endorse single episode of nausea and vomiting when the pain first occurred Associated symptoms: Reports nausea and vomiting Review of Systems 2 General: Reports: 10 or more systems reviewed and unremarkable except in HPI and below GI: Reports: nausea and vomiting Musc: Reports: back pain PFS ED 2 PFSH: Medical History (Updated 10/01/23 @ 04:01 by Celso Oneil MD) Multiple rib fractures No significant past medical history Surgical History History of lung surgery Social History Smoking and tobacco/nicotine status: never used tobacco/nicotine Alcohol intake: former Physical Exam 2 Narrative: EXAM NARRATIVE: Constitutional: the patient appears well nourished and of normal development. Vital signs as documented. Acute distress present obvious pain.. Alert and oriented-to person, place, time and situation. Head, eyes, ears, nose, mouth, throat: Normocephalic, atraumatic. Pupils-equal, round, reactive to light. No scleral icterus. Normal-appearing external ears. Normal appearing nasal turbinates, no drainage. Neck: Supple, trachea is midline, no lymphadenopathy, no jugular venous distension, thyromegaly, or carotid bruits. Carotid upstrokes are brisk bilaterally. Lungs: clear to auscultation to all lung carrillo. Symmetrical rise and fall of chest, no obvious signs of increased work of breathing at present. Cardiac: Regular rate and rhythm, positive S1, S2. No murmurs, rubs or gallops that I can appreciate Abdomen: Soft, non-tender to palpation, normal active bowel sounds to all quadrants. No palpable masses, no organomegaly and abdominal bruits. Extremities: 2+ pulses in the upper extremities that are equal bilaterally, 2+ pulses in the lower extremities that are equal bilaterally. Non-edematous. Moves all extremities well, sensation to all extremities are noted. Skin: Warm, dry, intact. Back: Positive right CVA tenderness to light percussion. Course 2 Vital Signs: Vital signs: Vital Signs Temperature 98 F 10/01/23 01:14 Pulse Rate 64 10/01/23 02:30 Respiratory Rate 26 H 10/01/23 04:07 Blood Pressure 102/65 10/01/23 02:30 Pulse Oximetry 97 10/01/23 04:07 Oxygen Delivery Me thod Room Air 10/01/23 02:30 MDM - Back Pain/Injury Medical Decision Making Physical exam completed and documented, CBC, CMP IV access IV fluid Toradol for pain medication Zofran for nausea, I have provided the patient Flomax as well as an additional 4 mg of morphine for his pain control. Medical Records I reviewed the patient's medical records. Labs I reviewed the patient's lab results. 10/01/23 01:29 10/01/23 01:46 Radiology Impressions Abdomen/Pelvis CT 10/01/23 01:19 IMPRESSION: 1. 2-3 mm right ureterovesicular junction calcification causing [id number] right hydroureteronephrosis. 2. Tiny bilateral nonobstructing renal calculi. 3. Other nonemergent findings above. Laboratory Results WBC 6.72 10^3/uL (3.29-11.43) 10/01/23 01:29 RBC 5.17 10^6/uL (3.85-5.65) 10/01/23 01:29 Hgb 15.80 g/dL (11.27-16.99) 10/01/23 01:29 Hct 47.3 % (37-53) 10/01/23 01:29 MCV 91.5 fl (82-101) 10/01/23 01: MCH 30.6 pg (27-33) 10/01/23 01: MCHC 33.4 g/dL (30-55) 10/01/23 01:29 RDW 12.8 % (12.1-15.1) 10/01/23 01:29 Plt Count 263 10^3/cmm (157-399) 10/01/23 01:29 MPV 10.4 fL (7.4-10.4) 10/01/23 01: Neut % (Auto) 51.4 % 10/01/23 01: Lymph % (Auto) 36.8 % 10/01/23 01: [place]yo % (Auto) 9.5 % 10/01/23 01: Eos % (Auto) 1.2 % 10/01/23 01: Baso % (Auto) 1.0 % 10/01/23 01: Neut # (Auto) 3.45 10^3/uL (1.8-7.7) 10/01/23 01: Lymph # (Auto) 2.5 10^3/uL (0.8-4.8) 10/01/23 01: [place] # (Auto) 0.6 10^3/uL (0.2-0.9) 10/01/23 01: Eos # (Auto) 0.1 10^3/uL (0.0-0.8) 10/01/23 01: Baso # (Auto) 0.1 10^3/uL (0.0-0.1) 10/01/23 01: Nucleated RBC % (auto) 0 % 10/01/23 01: Nucleated RBCs # 0.0 /100WBC 10/01/23 01:29 Sodium 141 mmol/L (136-145) 10/01/23 01:46 Potassium 3.7 mmol/L (3.5-5.1) 10/01/23 01:46 Chloride 105 mmol/L (98-107) 10/01/23 01:46 Carbon Dioxide 26 mmol/L (22-29) 10/01/23 01:46 Anion Gap 13.7 (5-19) 10/01/23 01:46 BUN 28 mg/dL (6-20) H 10/01/23 01:46 Creatinine 0.8 mg/dL (0.7-1.2) 10/01/23 01:46 GFR Calculation 102.3 mL/min (90-130) 10/01/23 01:46 Glucose 117 mg/dL (65-115) H 10/01/23 01:46 Calculated Osmolality 299 mOsm/kg (285-295) H 10/01/23 01:46 Calcium 8.9 mg/dL (8.5-10.5) 10/01/23 01:46 Total Bilirubin 0.2 mg/dL (0.15-1.2) 10/01/23 01:46 AST 19 U/L (0-40) 10/01/23 01:46 ALT 22 U/L (0-41) 10/01/23 01:46 Alkaline Phosphatase 65 U/L (40-130) 10/01/23 01:46 Total Protein 6.2 g/dL (6.6-8.7) L 10/01/23 01:46 Albumin 3.8 g/dL (3.5-5.2) 10/01/23 01:46 Globulin 2.4 g/dL (1.3-4.6) 10/01/23 01:46 Urine Color Yellow (Yellow) 10/01/23 04:43 Urine Appearance Clear (CLEAR) 10/01/23 04:43 Urine pH 6 (5-7) 10/01/23 04:43 Ur Specific Dinosaur 1.020 (1.005-1.030) 10/01/23 04:43 Urine Protein Neg (Negative) 10/01/23 04:43 Urine Glucose (UA) Norm (Normal) 10/01/23 04:43 Urine Ketones Negative (Negative) 10/01/23 04:43 Urine Blood 3+ (Negative) H 10/01/23 04:43 Urine Nitrate Negative (Negative) 10/01/23 04:43 Urine Bilirubin Neg (Negative) 10/01/23 04:43 Urine Urobilinogen 1 mg/dL (Negative) H 10/01/23 04:43 Ur Leukocyte Esterase Negative (Negative) 10/01/23 04:43 Urine RBC 0-4 /hpf (0-2) H 10/01/23 04:43 Urine WBC 0-4 /hpf (0-5) H 10/01/23 04:43 Ur Squamous Epith Cells 0-4 /hpf (0-5) H 10/01/23 04:43 Amorphous Sediment Not Reportable 10/01/23 04:43 Urine Bacteria Trace /hpf (NONE) 10/01/23 04:43 All radiology interpretation(s) finalized by discharge Discharge Plan Discharge Patient Disposition: Home Clinical Impression: Renal calculi, Renal colic on right side Condition: Stable Prescriptions: New ondansetron HCl 4 mg tablet 4 mg PO Q8H 5 Days Qty: 15 0RF hydrocodone-acetaminophen 10-325 mg tablet 1 tab PO Q6H PRN (Reason: pain) Qty: 14 0RF Flomax 0.4 mg capsule 0.4 mg PO DAILY Qty: 30 0RF Discharge Orders: Discharge ED (Routine); Ordered 10/01/23 Ordered By: Celso Oneil Referrals: Francisco J Garcia MD [Primary Care Provider] - Discharge Diet: Usual diet Discharge Activity: Resume usual activity Patient Instructions: Abdominal Pain (ED), Opioid Safety, Pain Management Activity Restrictions/Additional Instructions: Call to make a Follow-up appointment: [facility] [address] [place] [address] [facility] [address] [place] [address] Phone--[phone] Activity Restrictions/Additional Instructions: Thank you for choosing [facility] for your healthcare needs today. Please realize that you were seen in the Emergency Department and that we are providing you with an emergency medical screening exam and this may not be a complete and all inclusive of all the testing and or medical work-up that you may need to determine your ailment or severity of your illness. It is very important that you follow-up as instructed with your Primary care provider or Specialist for additional evaluation and to discuss your medical treatment plan. You may return to the Emergency Department should you have concerns or if your condition changes or worsens in any way. Coding Level of Care Code ED Culturist for Anand Nixon
--- NOTE | 2023-10-01 01:19 | CTR_ITS ---
PROCEDURE INFORMATION: Exam: CT Abdomen And Pelvis Without Contrast Exam date and time: 10/01/2023 1:30 AM Age: 48 years old Clinical indication: Abdominal pain; Right; Prior surgery; Surgery date: 6+ months; Surgery type: Costal fixation; Patient HX: RT flank/groin pain; Additional info: Right flank pain TECHNIQUE: Imaging protocol: Computed tomography of the abdomen and pelvis without contrast. Radiation optimization: All CT scans at this facility use at least one of these dose optimization techniques: automated exposure control; mA and/or kV adjustment per patient size (includes targeted exams where dose is matched to clinical indication); or iterative reconstruction. COMPARISON: CT kidney stone [id number] 02/22/2017 1:05 PM RADIATION DOSE METRICS: Total DLP (mGy-cm): 437.78 FINDINGS: Lungs: Mild right basilar scarring appears to be related to multiple chronic rib fractures status post fixation.Heart size is within normal limits. There is no pericardial effusion or pericardial thickening. Liver: The liver is normal. No hepatic masses are identified. Gallbladder and bile ducts: The gallbladder is contracted. There is no ductal dilatation. Pancreas: The pancreas is normal. Spleen: The spleen is normal. Adrenal glands: Mild nodularity of the right adrenal gland, stable dating back to 2016. The adrenal glands are otherwise normal. Kidneys and ureters: 2 mm nonobstructing left lower pole renal calculus. No hydronephrosis. Punctate right upper pole nonobstructing renal calculus. 2-3 mm right ureterovesicular junction calcification causing [id number] right hydroureteronephrosis. Stomach and bowel: There is no large or small bowel obstruction. There is no evidence of bowel wall thickening. Appendix: A normal appendix is identified. Intraperitoneal space: No inflammatory changes are identified. There is no free fluid or fluid collection seen. There is no pneumoperitoneum. Vasculature: The aorta is normal in course and caliber. No significant atherosclerotic calcifications are present. Lymph nodes: There are no enlarged retroperitoneal or mesenteric lymph nodes. Urinary bladder: Apart from right UVJ calcification, the bladder is grossly normal. Reproductive: Moderate prostatomegaly. Bones/joints: No acute osseous abnormalities.. Soft tissues: There is a small left inguinal hernia containing only fat. CT/CT kidney stone [id number] IMPRESSION: 1. 2-3 mm right ureterovesicular junction calcification causing [id number] right hydroureteronephrosis. 2. Tiny bilateral nonobstructing renal calculi. 3. Other nonemergent findings above.
[2023-10-01] MEDS: ondansetron 2 mg/ML SDV 2 mL 4 MG IVP (01:25)
[2023-10-01] MEDS: sodium chloride 0.9% 1,000 ML 999 ML IV ×3 (01:25→04:05)
[2023-10-01] MEDS: ketorolac 30 mg/mL INJ IVP (01:25)
[2023-10-01 01:34] LABS: Basophils # 0.1 10^3/uL (0.0-0.1); Eosinophils # 0.1 10^3/uL (0.0-0.8); Eosinophils % 1.2 %; Hematocrit 47.3 % (37-53); Lymphocytes # 2.5 10^3/uL (0.8-4.8); Lymphocytes % 36.8 %; Mean Corpuscular HGB Conc 33.4 g/dL (30-55); Mean Corpuscular Hemoglobin 30.6 pg (27-33); Mean Corpuscular Volume 91.5 fl (82-101); Mean Platelet Volume 10.4 fL (7.4-10.4); Monocytes # 0.6 10^3/uL (0.2-0.9); Monocytes % 9.5 %; Neutrophils # 3.45 10^3/uL (1.8-7.7); Neutrophils % 51.4 %; Nucleated Red Blood Cells % 0 %; Platelet Count 263 10^3/cmm (157-399); Red Blood Count 5.17 10^6/uL (3.85-5.65); Red Cell Distribution Width 12.8 % (12.1-15.1); White Blood Count 6.72 10^3/uL (3.29-11.43)
[2023-10-01 02:14] LABS: Alanine Aminotransferase 22 U/L (0-41); Albumin Level 3.8 g/dL (3.5-5.2); Alkaline Phosphatase 65 U/L (40-130); Anion Gap 13.7 (5-19); Aspartate Amino Transferase 19 U/L (0-40); Blood Urea Nitrogen 28 mg/dL (6-20); Calcium 8.9 mg/dL (8.5-10.5); Carbon Dioxide 26 mmol/L (22-29); Chloride 105 mmol/L (98-107); Globulin 2.4 g/dL (1.3-4.6); Glomerular Filtration Rate 102.3 mL/min (90-130); Glucose 117 mg/dL (65-115); Osmolality Calculated 299 mOsm/kg (285-295); Potassium 3.7 mmol/L (3.5-5.1); Sodium 141 mmol/L (136-145); Total Bilirubin 0.2 mg/dL (0.15-1.2); Total Protein 6.2 g/dL (6.6-8.7)
[2023-10-01] MEDS: tamsulosin 0.4 mg Capsule PO (02:51)
[2023-10-01] MEDS: morphine 4 mg/mL SDV 1 mL IVP (04:07)
[2023-10-01 05:10] LABS: Add Urine Microscopic? YES; Bilirubin Urine Neg (Negative); Blood Urine 3+ (Negative); Glucose Urine UA Norm (Normal); Ketones Urine Negative (Negative); Leukocyte Esterase Urine Negative (Negative); Nitrate Urine Negative (Negative); Protein Urine Neg (Negative); Urine Appearance Clear (CLEAR); Urine Color Yellow (Yellow); Urobilinogen Urine 1 mg/dL (Negative); pH Urine 6 (5-7)
[2023-10-01 05:19] LABS: Bacteria Urine TRACE /hpf; RBC Urine 0-4 /hpf (0-2); Squamous Epithelial Cell Urine 0-4 /hpf (0-5); WBC Urine 0-4 /hpf (0-5)
== END 2023-10-01 05:08 | disposition home or self-care (01) ==
PROVIDERS: Emergency Provider Internal Medicine; PCP Family Medicine
DX: N13.2 Hydronephrosis with renal and ureteral calculous obstruction (principal)
CPT/HCPCS: 36415; 74176; 80053; 81001; 85025; 96361; 96374; 96375; 99285; J1885; J2270; J2405; J7030

== ENCOUNTER 2023-12-25 15:52 | Emergency (ER) | payer SELFPAY ==
[2023-12-25 15:57] VITALS: BP 121/67; PULSE 91; RESP 18; TEMP 36.6; O2SAT 97
--- NOTE | 2023-12-25 16:13 | XRR_ITS ---
PROCEDURE INFORMATION: Exam: XR Right Knee Exam date and time: 12/25/2023 4:35 PM Age: 48 years old Clinical indication: Pain; Knee; Right; Additional info: RT knee pain; No known injury TECHNIQUE: Imaging protocol: Radiologic exam of the right knee. Views: 3 views. COMPARISON: No relevant prior studies available. FINDINGS: Bones/joints: No acute fracture. No dislocation. Normal bone mineralization. No joint effusion. Joint spaces are maintained. Soft tissues: No soft tissue swelling. No radiopaque foreign body. XR/XR knee RT 3V* [id number] IMPRESSION: Negative radiographs of the right knee. Followup imaging recommended in 7-14 days if clinical concern for fracture persists.
--- NOTE | 2023-12-25 16:15 | ED_ITS ---
HPI - Extremity Problem General: Chief complaint: Extremity Problem,Nontraumatic Stated complaint: Right knee injury Time Seen by Provider: 12/25/23 16:07 History of Present Illness: 48-year-old man who presents to the [facility] room with right knee pain. He says this started after he was walking up and down a bunch of stairs. Initially he felt some popping when he would bend it. He had quite a bit of swelling in his knee for a day or 2. He is taking a little bit of ibuprofen but no other therapy. He has iced it some. Swelling seems to have gone down. He feels like there is some swelling in the back of his knee. He says the pain has been migratory. At 1 point it was on the lateral side and on the medial then on the back then some radiating down the front into his foot. Today there is no swelling. No warmth. No redness. No deformity. Review of Systems Narrative: Constitutional symptoms: Negative except as documented in HPI. Skin symptoms: Negative except as documented in HPI. Eye symptoms: Negative except as documented in HPI. ENMT symptoms: Negative except as documented in HPI. Respiratory symptoms: Negative except as documented in HPI. Cardiovascular symptoms: Negative except as documented in HPI. Gastrointestinal symptoms: Negative except as documented in HPI. Genitourinary symptoms: Negative except as documented in HPI. Musculoskeletal symptoms: Negative except as documented in HPI. Neurologic symptoms: Negative except as documented in HPI. Psychiatric symptoms: Negative except as documented in HPI. Endocrine symptoms: Negative except as documented in HPI. [facility] ED PFSH: Medical History (Updated 12/25/23 @ 16:47 by Layla Johnson MD) Multiple rib fractures No significant past medical history Surgical History History of lung surgery Social History Smoking and tobacco/nicotine status: never used tobacco/nicotine Alcohol intake: former Physical Exam Narrative: EXAM NARRATIVE: General: Alert, no acute distress. Skin: warm and dry Head: Normocephalic Neck: Trachea midline Eye: Extraocular movements are intact. Ears, nose, mouth and throat: Oral mucosa moist Respiratory: Respirations are non-labored Musculoskeletal: Normal ROM, no obvious deformity. No significant swelling, neurovascularly intact. Neurological: Alert and oriented, No focal neurological deficit observed. Psychiatric: Cooperative, appropriate mood & affect. Course Vital Signs: Vital signs: Vital Signs Temperature 97.9 F 12/25/23 15:57 Pulse Rate 91 12/25/23 15:57 Respiratory Rate 18 12/25/23 15:57 Blood Pressure 121/67 12/25/23 15:57 Pulse Oximetry 97 12/25/23 15:57 Oxygen Delivery Me thod Room Air 12/25/23 15:57 MDM - Extremity (Nontraumatic) Medical Decision Making Medical decision making: Differential diagnosis including but not limited to and based on the above HPI, review of systems and physical exam: There is pain with nontraumatic knee pain I did get an x-ray to evaluate for arthritis or an occult fracture. We discussed that likely if he had continued pain and had some sort of internal ligamentous or cartilaginous injury he would need to follow-up with orthopedics. Orders placed to evaluate differential diagnosis based on the above differen tial, HPI and physical exam X-ray of the knee shows no acute fractures or subluxations. No terrible degenerative disease. This was reviewed and interpreted by myself the emergency room physician I reviewed the patient's medical record. Assessment and plan: Knee pain -IM Toradol and Decadron in the emergency room - Discharged home - Discussed plan with patient. Answered any questions. - Evaluation and treatment of this problem were appropriate in the emergency setting. XR interpretation done by ED provider, pending radiology final review Discharge Plan Discharge Patient Disposition: Home Clinical Impression: Knee pain Condition: Stable Prescriptions: New dexamethasone 6 mg tablet 6 mg PO DAILY 5 Days Qty: 5 0RF tramadol 50 mg tablet 50 mg PO Q8H PRN (Reason: pain) Qty: 20 0RF diclofenac sodium 50 mg tablet,delayed release (DR/EC) 50 mg PO Q12H Qty: 20 0RF No Action hydrocodone-acetaminophen 10-325 mg tablet 1 tab PO Q6H PRN (Reason: pain) Qty: 14 0RF Flomax 0.4 mg capsule 0.4 mg PO DAILY Qty: 30 0RF Discharge Orders: Discharge ED (Routine); Ordered 12/25/23 Ordered By: Layla Johnson Referrals: Francisco J Garcia MD [Primary Care Provider] - 4-7 days Chika Encarnacion MD [Physician] - 7-10 days (Please call for appointment if pain persists) Discharge Activity: Increase activity as tolerated Patient Instructions: Knee Pain (ED), Opioid Safety, Pain Management Activity Restrictions/Additional Instructions: Thank you for choosing [facility] for your healthcare needs today. Please realize this is an emergency room and that we are providing you with a medical screening exam and this may not be complete and all inclusive of all the testing and or work up that you may need to determine your ailment or severity of your illness. You have been screened and evaluated and felt safe for discharge. Health conditions do change or evolve sometimes and as such it is important that you follow up with your Primary Doctor to be re checked, 3-5 days is a general good time frame for follow up. You are always welcome to return to the ED for re assessment if your symptoms are worsening or you have new concerns Coding Level of Care Code ED Hospital Pharmacist for Anand Nixon
[2023-12-25] MEDS: ketorolac 60 mg/2 mL INJ IM (16:47)
[2023-12-25] MEDS: dexamethasone 10 mg/mL INJ IM (16:47)
[2023-12-25 17:08] VITALS: BP 120/69; PULSE 87; RESP 16; TEMP 36.6; O2SAT 99
== END 2023-12-25 17:09 | disposition home or self-care (01) ==
PROVIDERS: Emergency Provider Emergency Medicine; PCP Family Medicine
DX: M25.561 Pain in right knee (principal)
CPT/HCPCS: 73562; 96372; 99284; J1100; J1885

== ENCOUNTER 2024-01-07 18:45 | Emergency (ER) | payer SELFPAY ==
[2024-01-07 18:50] VITALS: BP 135/90; PULSE 82; RESP 16; TEMP 36.7; O2SAT 97; BMI 25.0
[2024-01-07] MEDS: lidocaine 2% INJ 20 mL INJECTION (19:13)
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
[2024-01-07] MEDS: cephALEXin 500 mg Capsule PO (20:09)
== END 2024-01-07 20:12 | disposition home or self-care (01) ==
PROVIDERS: Emergency Provider Physician Assistant; PCP Family Medicine
DX: S61.210A Laceration without foreign body of right index finger without damage to nail, initial encounter (principal); W26.0XXA Contact with knife, initial encounter
CPT/HCPCS: 12002; 99283

== ENCOUNTER 2024-04-04 07:03 | Emergency (ER) | payer SELFPAY ==
[2024-04-04 07:07] VITALS: BP 140/92; PULSE 66; RESP 18; TEMP 36.6; O2SAT 98; BMI 22.8
[2024-04-04 07:10] VITALS: PULSE 66; O2SAT 99
--- NOTE | 2024-04-04 07:13 | XR_ITS ---
WS: [email or web address] Exam: XR lumbar spine 2-3V* [id number] Date/Time of Exam: 04/04/2024 7:36 AM Reason For Exam: fall Comparison 09/04/2020. No acute fracture or dislocation. Moderate degenerative narrowing of the L5-S1 disc. Slight spondylos is. Posterior elements are intact. XR/XR lumbar spine 2-3V* [id number] IMPRESSION: 1. No fracture or malalignment. Degenerative disc change at L5-S1.
--- NOTE | 2024-04-04 07:13 | XR_ITS ---
WS: [email or web address] Exam: XR ribs LT mn 3V w CXR1V [id number] Date/Time of Exam: 04/04/2024 7:36 AM Reason For Exam: fall Compared to chest radiograph 01/08/2019. No acute LEFT rib fracture. The lungs are fully expanded and c lear. Normal cardiomediastinal silhouette. Mild pleural thickening at the RIGHT costophrenic angle li blaire representing pleural scarring. Plate and screw fixation of multiple old RIGHT healed rib fractur es. Remaining bony structures are unremarkable. XR/XR ribs LT mn 3V w CXR1V [id number] IMPRESSION: 1. No acute LEFT rib fracture or pneumothorax. Other minor chronic findings as detailed above.
--- NOTE | 2024-04-04 07:13 | XR_ITS ---
WS: [email or web address] Exam: XR thoracic spine 3V* [id number] Date/Time of Exam: 04/04/2024 7:36 AM Reason For Exam: fall Comparison 09/04/2020. No acute fracture or malalignment. Mild spondylosis. Paraspinal soft tissues are unremarkable. Severa l healed RIGHT rib fractures with plate and screw fixation noted. XR/XR thoracic spine 3V* [id number] IMPRESSION: 1. No acute fracture or malalignment. Minor findings as above.
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
[2024-04-04] MEDS: HYDROcodone-acetaminophen 5-325 mg Tablet 1 TAB PO (07:19)
[2024-04-04 08:39] VITALS: BP 138/70; PULSE 58; RESP 16; O2SAT 100
== END 2024-04-04 08:41 | disposition home or self-care (01) ==
PROVIDERS: Emergency Provider Emergency Medicine
DX: S20.212A Contusion of left front wall of thorax, initial encounter (principal); W19.XXXA Unspecified fall, initial encounter; Y93.16 Activity, rowing, canoeing, kayaking, rafting and tubing
CPT/HCPCS: 71101; 72072; 72100; 99284

== ENCOUNTER 2025-01-12 20:28 | Emergency (ER) | payer SELFPAY ==
[2025-01-12 20:35] VITALS: BP 109/75; PULSE 88; RESP 16; TEMP 36.7; O2SAT 95; BMI 22.6
--- NOTE | 2025-01-12 20:42 | PC.NURSE ---
c coller was placed on pt in triage
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
[2025-01-12] MEDS: HYDROmorphone 0.5 MG/0.5 ML INJ 1 MG IVP (21:27)
[2025-01-12 21:30] LABS: Basophils # 0.1 10^3/uL (0.0-0.1); Eosinophils # 0.1 10^3/uL (0.0-0.8); Lymphocytes # 3.5 10^3/uL (0.8-4.8); Lymphocytes % 27.7 %; Mean Corpuscular Hemoglobin 30.7 pg (27-33); Mean Platelet Volume 9.7 fL (7.4-10.4); Monocytes # 0.8 10^3/uL (0.2-0.9); Neutrophils # 8.02 10^3/uL (1.8-7.7); Neutrophils % 63.9 %; Nucleated Red Blood Cells % 0 %; Platelet Count 316 10^3/cmm (157-399); Red Blood Count 4.73 10^6/uL (3.85-5.65); Red Cell Distribution Width 12.3 % (12.1-15.1); White Blood Count 12.56 10^3/uL (3.29-11.43)
[2025-01-12] MEDS: lidocaine-epi 1% 20 mL INJ INJECTION (21:32)
[2025-01-12 21:41] LABS: Alanine Aminotransferase 35 U/L (0-41); Albumin Level 4.5 g/dL (3.5-5.2); Alcohol Level 267 mg/dL (0-10); Alkaline Phosphatase 81 U/L (40-130); Aspartate Amino Transferase 36 U/L (0-40); Blood Urea Nitrogen 9 mg/dL (6-20); Calcium 8.9 mg/dL (8.5-10.5); Carbon Dioxide 22 mmol/L (22-29); Chloride 104 mmol/L (98-107); Creatinine Clr Calc Pharmacy 108.4378; Globulin 2.6 g/dL (1.3-4.6); Glomerular Filtration Rate 101.9 mL/min (90-130); Glucose 85 mg/dL (65-115); Osmolality Calculated 288 mOsm/kg (285-295); Sodium 140 mmol/L (136-145); Total Bilirubin 0.2 mg/dL (0.15-1.2); Total Protein 7.1 g/dL (6.6-8.7)
[2025-01-12] MEDS: iohexol 350 mg/mL 500 mL Btl (per mL) IV (21:41)
[2025-01-12 22:11] VITALS: BP 124/78; PULSE 77; RESP 18; O2SAT 93
[2025-01-13] MEDS: HYDROmorphone 0.5 MG/0.5 ML INJ IVP (00:25)
[2025-01-13] MEDS: HYDROmorphone 0.5 MG/0.5 ML INJ 1 MG IVP (01:50)
[2025-01-13 02:03] VITALS: BP 168/64; PULSE 79; RESP 16; O2SAT 95
== END 2025-01-13 02:00 | disposition home or self-care (01) ==
PROVIDERS: Emergency Provider Student in an Organized Health Care Education/Training Program
DX: R07.81 Pleurodynia (principal); S01.511A Laceration without foreign body of lip, initial encounter; V86.95XA Unspecified occupant of 3- or 4- wheeled all-terrain vehicle (ATV) injured in nontraffic accident, initial encounter
CPT/HCPCS: 12011; 36415; 70450; 71260; 72125; 74177; 80053; 80307; 85025; 96374; 96376; 99285; J1171; J9999